=== PATIENT | male | born 1990 | race Two or more races ===

== ENCOUNTER 2023-01-26 18:18 | Emergency (ER) | payer SELFPAY ==
[~2023-01-26] VITALS: Ht 167.6 cm; Wt 82.4 kg
[2023-01-26] MEDS ORDERED: AMOXICILLIN/CLAVUL 875 MG TAB PO ONE (20:00)
[2023-01-26] MEDS ORDERED: AUG875T PO (20:00)
[2023-01-26 20:11] VITALS: BP 119/73; PULSE 85; RESP 16; TEMP 100.4; O2SAT 96
[2023-01-26] MEDS ORDERED: KETOROLAC TROMETH 30 MG/ML 1ML VIAL IM ONE (20:15)
== END 2023-01-26 20:45 | disposition home or self-care (01) ==
LOC: ER 18:18
DX: S61.411A Laceration without foreign body of right hand, initial encounter (principal); S61.451A Open bite of right hand, initial encounter; S91.052A Open bite, left ankle, initial encounter; Z79.2 Long term (current) use of antibiotics; W54.0XXA Bitten by dog, initial encounter; Y93.89 Activity, other specified; Y92.89 Other specified places as the place of occurrence of the external cause; Y99.8 Other external cause status
CPT/HCPCS: 96372; 99283; J1885